=== PATIENT | male | born 1950 | race Two or more races ===

== ENCOUNTER 2016-07-08 12:04 | Inpatient (IN) | payer MEDICAID ==
[~2016-07-08] VITALS: Ht 165.1 cm; Wt 78.9 kg
[~2016-07-08 12:04] MED LIST: BACITRACIN15 GM TOPIC; BENADRYL A12.5 MG/5 ORAL; BISACODYL10 M1 RC; BISACODYL5 MG ORAL; DOCUSATE SODIU100 MG ORAL; IBUPROFEN200 MG ORAL; KEFLEX500 MG ORAL; LIBRIUM10 MG ORAL; LIBRIUM25 MG ORAL; MORPHINE SULFAT30 M7 PO; NKM; NORCO 10/3251 EA ORAL; NORCO 5-325 TA1 EACH ORAL; ONDANSETRON ODT4 MG ORAL; PERCOCET 5-3251 EACH ORAL; POLYETHYLENE G255 GM PO; PRAVASTATIN SOD20 M1 ORAL; SENNA; TYLENOL325 MG ORAL; UNOBMED
[2016-07-08 12:05] VITALS: BP 141/88
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
[2016-07-08 12:35] LABS: RED BLOOD COUNT 4.32 M/UL (4.70-6.10); WHITE BLOOD COUNT 5.9 K/UL (4.8-10.8)
[2016-07-08 12:36] LABS: BASOPHILS % (AUTO) 0.8 % (0.0-2.0); EOSINOPHILS % (AUTO) 0.4 % (0.0-3.0); LYMPHOCYTES % (AUTO) 23.8 % (20.0-45.0); MEAN CORPUSCULAR HEMOGLOBIN 35.3 PG (27.0-31.0); MEAN CORPUSCULAR HGB CONC 33.1 G/DL (32.0-36.0); MEAN CORPUSCULAR VOLUME 107 FL (80-99); MEAN PLATELET VOLUME 6.3 FL (6.5-10.1); MONOCYTES % (AUTO) 6.4 % (1.0-10.0); NEUTROPHILS % (AUTO) 68.6 % (45.0-75.0); PLATELET COUNT 185 K/UL (150-450); RED CELL DISTRIBUTION WIDTH 13.9 % (11.6-14.8)
[2016-07-08 12:48] LABS: ALANINE AMINOTRANSFERASE 14 U/L (3-41); ALBUMIN/GLOBULIN RATIO 1.7 (1.0-2.7); ALCOHOL 305 mg/dL; ANION GAP 16 (5-15); ASPARTATE AMINO TRANSFERASE 29 U/L (5-40); CALCIUM 9.2 mg/dL (8.6-10.2); CARBON DIOXIDE 30 mEQ/L (20-30); CHLORIDE 102 mEQ/L (98-107); CREATININE 0.7 mg/dL (0.7-1.2); GLOMERULAR FILTRATION RATE > 60 mL/min (>60); HEMOLYSIS 8; LIPASE 48 U/L (< 60); POTASSIUM 3.4 mEQ/L (3.4-4.9); SODIUM 148 mEQ/L (135-145); TOTAL PROTEIN 7.2 g/dL (6.6-8.7); TROPONIN I < 0.30 ng/mL (<=0.30)
[2016-07-08 12:58] LABS: CKMB 6.4 ng/mL (< 6.7)
--- NOTE | 2016-07-08 13:04 | Diagnostic Imaging Report ---
Indication: Chest Pain Comparison: 04/30/16 A single view chest radiograph was obtained. Findings: No definite infiltrate or pulmonary vascular congestion identified. The heart is enlarged. The aorta is mildly enlarged consistent with atherosclerotic vascular disease. There is a left clavicle plate. Fracture deformity of the left proximal humerus again noted. The bones are osteopenic. Impression: No acute disease
[2016-07-08] MEDS ORDERED: Tubing IV Cassette IV ONE (13:47)
[2016-07-08 14:00] VITALS: BP 132/74
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
[2016-07-08] MEDS ORDERED: Mylanta II UD 30ml ORAL PRN (17:30)
[2016-07-08] MEDS ORDERED: Zolpidem 5mg tab ORAL PRN (17:30)
[2016-07-08] MEDS ORDERED: Morphine Sulfate 2mg/ml Inj IVP PRN (17:30)
[2016-07-08] MEDS ORDERED: Miralax 17gm pkt ORAL PRN (17:30)
[2016-07-08] MEDS ORDERED: chlordiazePOXIDE 25mg Cap ORAL PRN (17:30)
[2016-07-08] MEDS ORDERED: LORazepam Inj 2mg/ml 1ml IV PRN (17:30)
[2016-07-08] MEDS: Heparin 5000 units/ml inj SUBQ SCH (20:56)
[2016-07-08] MEDS ORDERED: Thiamine HCl 100 MG in NS 50 ML IVPB SCH (21:00)
[2016-07-08] MEDS ORDERED: KCL IV SCH ×4 (21:00)
[2016-07-08] MEDS ORDERED: NS IV SCH ×4 (21:00)
[2016-07-08] MEDS ORDERED: [UNRECOGNIZED DRUG - OTHER] IV SCH ×4 (21:00)
[2016-07-08] MEDS ORDERED: FOLIC ACID IV SCH ×4 (21:00)
[2016-07-08] MEDS ORDERED: MVI IV SCH ×4 (21:00)
[2016-07-09] VITALS: BP 160/86
[2016-07-09 04:00] VITALS: BP 168/90
[2016-07-09 06:02] LABS: BASOPHILS % (AUTO) 0.9 % (0.0-2.0); EOSINOPHILS % (AUTO) 0.6 % (0.0-3.0); LYMPHOCYTES % (AUTO) 34.2 % (20.0-45.0); MEAN CORPUSCULAR HEMOGLOBIN 34.5 PG (27.0-31.0); MEAN CORPUSCULAR HGB CONC 32.1 G/DL (32.0-36.0); MEAN CORPUSCULAR VOLUME 108 FL (80-99); MEAN PLATELET VOLUME 6.9 FL (6.5-10.1); MONOCYTES % (AUTO) 10.9 % (1.0-10.0); NEUTROPHILS % (AUTO) 53.5 % (45.0-75.0); PLATELET COUNT 155 K/UL (150-450); RED BLOOD COUNT 3.42 M/UL (4.70-6.10); RED CELL DISTRIBUTION WIDTH 13.7 % (11.6-14.8)
[2016-07-09 06:42] LABS: ALANINE AMINOTRANSFERASE 11 U/L (3-41); ALBUMIN/GLOBULIN RATIO 1.5 (1.0-2.7); ANION GAP 11 (5-15); ASPARTATE AMINO TRANSFERASE 23 U/L (5-40); CALCIUM 8.4 mg/dL (8.6-10.2); CARBON DIOXIDE 24 mEQ/L (20-30); CHLORIDE 109 mEQ/L (98-107); CREATININE 0.7 mg/dL (0.7-1.2); GLOMERULAR FILTRATION RATE > 60 mL/min (>60); HEMOLYSIS 3; POTASSIUM 4.4 mEQ/L (3.4-4.9); SODIUM 144 mEQ/L (135-145); TOTAL PROTEIN 5.5 g/dL (6.6-8.7)
[2016-07-09 08:00] VITALS: BP 164/81
[2016-07-09] MEDS: Heparin 5000 units/ml inj SUBQ SCH ×2 (08:11→20:37)
--- NOTE | 2016-07-09 09:32 | Pulmonology Progress Note ---
Assessment/Plan Problems: (1) Acute alcoholic intoxication (2) Episode of generalized weakness (3) Rhabdomyolysis Assessment/Plan improving Iv fluid symptomatic treatment Banana bag ativan check electrolytes social service consult' dc home or to a residential today. pt needs a wheelchair Subjective ROS Limited/Unobtainable: No Interval Events: awake, doing bettter, no new complains, asking for a wheelchair Allergies: Coded Allergies: NO KNOWN DRUG ALLERGIES (Unverified Allergy, Unknown, 08/04/14) Objective Last 24 Hour Vital Signs Date Time Temp Pulse Resp B/P Pulse Ox O2 Delivery O2 Flow Rate FiO2 07/09/16 04:00 66 07/09/16 04:00 97.7 62 20 168/90 97 Room Air 07/09/16 00:00 97.4 102 20 160/86 95 Room Air 07/09/16 00:00 79 07/08/16 20:00 87 07/08/16 18:10 83 07/08/16 17:06 71 17 130/62 96 Room Air 07/08/16 14:00 78 16 132/74 94 Room Air 07/08/16 12:05 73 14 141/88 95 Room Air 07/08/16 12:00 97.2 82 16 147/84 97 Room Air Intake and Output 07/08/16 07/09/16 19:00 07:00 Intake Total 1000 ml 1176 ml Output Total 800 ml Balance 1000 ml 376 ml Intake Oral 0 ml IV Total 1000 ml 1176 ml Output Urine Total 800 ml # Voids 3 # Bowel Movements 1 General Appearance: WD/WN HEENT: normocephalic, anicteric Respiratory/Chest: chest wall non-tender, lungs clear Cardiovascular: normal peripheral pulses, normal rate Abdomen: normal bowel sounds, soft, non tender Genitourinary: normal external genitalia Extremities: no cyanosis 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 Lymphatic: no neck adenopathy Laboratory Tests 07/08/16 12:10: White Blood Count 5.9, Red Blood Count 4.32L, Hemoglobin 15.2, Hematocrit 46.0, Mean Corpuscular Volume 107H, Mean Corpuscular Hemoglobin 35.3H, Mean Corpuscular Hemoglobin Concent 33.1, Red Cell Distribution Width 13.9, Platelet Count 185, Mean Platelet Volume 6.3L, Neutrophils (%) (Auto) 68.6, Lymphocytes ( %) (Auto) 23.8, Monocytes (%) (Auto) 6.4, Eosinophils (%) (Auto) 0.4, Basophils (%) (Auto) 0.8, Sodium Level 148H, Potassium Level 3.4, Chloride Level 102, Carbon Dioxide Level 30, Anion Gap 16H, Blood Urea Nitrogen 14, Creatinine 0.7, Estimat Glomerular Filtration Rate > 60, Glucose Level 113H, Calcium Level 9.2, Total Bilirubin 0.2, Aspartate Amino Transf (AST/SGOT) 29, Alanine Aminotransferase (ALT/SGPT) 14, Alkaline Phosphatase 157H, Total Creatine Kinase 574H, Creatine Kinase MB 6.4, Creatine Kinase MB Relative Index 1.1, Troponin I < 0.30, Total Protein 7.2, Albumin 4.6, Globulin 2.6, Albumin/ Globulin Ratio 1.7, Lipase 48, Serum Alcohol 305 07/09/16 04:30: White Blood Count 5.0, Red Blood Count 3.42L, Hemoglobin 11.8L, Hematocrit 36.9L , Mean Corpuscular Volume 108H, Mean Corpuscular Hemoglobin 34.5H, Mean Corpuscular Hemoglobin Concent 32.1, Red Cell Distribution Width 13.7, Platelet Count 155, Mean Platelet Volume 6.9, Neutrophils (%) (Auto) 53.5, Lymphocytes (% ) (Auto) 34.2, Monocytes (%) (Auto) 10.9H, Eosinophils (%) (Auto) 0.6, Basophils (%) (Auto) 0.9, Sodium Level 144, Potassium Level 4.4, Chloride Level 109H, Carbon Dioxide Level 24, Anion Gap 11, Blood Urea Nitrogen 13, Creatinine 0.7, Estimat Glomerular Filtration Rate > 60, Glucose Level 94, Calcium Level 8.4L, Total Bilirubin 0.5, Aspartate Amino Transf (AST/SGOT) 23, Alanine Aminotransferase (ALT/SGPT) 11, Alkaline Phosphatase 124, Total Protein 5.5L, Albumin 3.3L, Globulin 2.2, Albumin/Globulin Ratio 1.5 Current Medications Medications (Trade) Dose Ordered Sig/Payton Route PRN Reason Start Time Stop Time Status Last Admin Dose Admin Acetaminophen (Tylenol) 650 mg Q4H PRN ORAL fever 07/08/16 17:30 08/07/16 17:29 Al Hydroxide/Mg Hydroxide (Mylanta II) 30 ml Q6H PRN ORAL dyspepsia 07/08/16 17:30 08/07/16 17:29 Chlordiazepoxide 25 mg 25 mg Q6H PRN ORAL Agitation 07/08/16 17:30 07/15/16 17:29 Dextrose STAT PRN IV Hypoglycemia 07/08/16 17:30 08/07/16 17:29 Folic Acid/ Magnesium Sulfate/ Multivitamins/ Sodium Chloride (Folvite/ Magnesium Sulfate/ M.v.i.-12/NS w/ KCl 20mEq) 1,014.2 ml @ 125 mls/ hr Q24H IV 07/08/16 21:00 08/07/16 20:59 07/08/16 20:09 Heparin Sodium (Porcine) (Heparin 5000 units/ml) 5,000 units EVERY 12 HOURS SUBQ 07/08/16 21:00 08/07/16 20:59 07/09/16 08:11 Lorazepam (Ativan 2mg/ml 1ml) 2 mg EVERY HOUR PRN IV seizures 07/08/16 17:30 07/15/16 17:29 Morphine Sulfate (Morphine Sulfate) 1 mg EVERY 4 HOURS PRN IVP For Pain 07/08/16 17:30 07/15/16 17:29 Ondansetron HCl (Zofran) 4 mg Q6H PRN IVP Nausea & Vomiting 07/08/16 17:30 08/07/16 17:29 Polyethylene Glycol (Miralax) 17 gm HSPRN PRN ORAL Constipation 07/08/16 17:30 08/07/16 17:29 Thiamine HCl/ Sodium Chloride (Vitamin B1/ Sodium Chloride 50ml bag) 51 ml @ 25 mls/hr Q24H IVPB 07/08/16 21:00 08/07/16 20:59 07/08/16 20:21 Zolpidem Tartrate (Ambien) 5 mg HSPRN PRN ORAL Insomnia 07/08/16 17:30 08/07/16 17:29 FELICIA VALLECILLO Jul 09, 2016 09:32
[2016-07-09 12:00] VITALS: BP 169/94
[2016-07-09] MEDS ORDERED: Thiamine HCl 100 MG in NS 50 ML IVPB SCH ×2 (12:00→22:00)
[2016-07-09] MEDS ORDERED: Folic Acid 1 MG, Magnesium Sulfate 2,000 MG, Multivitamin - 12 Injection 10 ML in NS w/... IV SCH ×2 (12:00→22:00)
[2016-07-09 16:11] VITALS: BP 186/85
[2016-07-09] MEDS ORDERED: Miralax 17gm pkt ORAL PRN (17:30)
[2016-07-09] MEDS ORDERED: chlordiazePOXIDE 25mg Cap ORAL PRN (17:30)
[2016-07-09] MEDS ORDERED: Zolpidem 5mg tab ORAL PRN (17:30)
[2016-07-09] MEDS ORDERED: Mylanta II UD 30ml ORAL PRN (17:30)
--- NOTE | 2016-07-09 17:44 | Cardiology Report ---
APPROVED REPORT EKG Measurement Heart [id number] Sinus rhythm with premature atrial complexes Otherwise normal ECG
[2016-07-09] MEDS ORDERED: LORazepam Inj 2mg/ml 1ml IV PRN (18:00)
[2016-07-09 20:00] VITALS: BP 183/88
[2016-07-09] MEDS ORDERED: Morphine Sulfate 2mg/ml Inj IVP PRN (21:00)
[2016-07-10] VITALS (7 sets, daily range): BP systolic 157–187; BP diastolic 82–99
[2016-07-10 06:54] LABS: PROTHROMBIN TIME 9.9 SEC (9.30-11.50)
[2016-07-10 07:00] LABS: BASOPHILS % (AUTO) 0.8 % (0.0-2.0); EOSINOPHILS % (AUTO) 1.2 % (0.0-3.0); LYMPHOCYTES % (AUTO) 37.9 % (20.0-45.0); MEAN CORPUSCULAR HEMOGLOBIN 33.9 PG (27.0-31.0); MEAN CORPUSCULAR HGB CONC 31.4 G/DL (32.0-36.0); MEAN CORPUSCULAR VOLUME 108 FL (80-99); MEAN PLATELET VOLUME 7.6 FL (6.5-10.1); MONOCYTES % (AUTO) 10.8 % (1.0-10.0); NEUTROPHILS % (AUTO) 49.2 % (45.0-75.0); PLATELET COUNT 137 K/UL (150-450); RED BLOOD COUNT 3.48 M/UL (4.70-6.10); RED CELL DISTRIBUTION WIDTH 13.3 % (11.6-14.8)
[2016-07-10] MEDS: Heparin 5000 units/ml inj SUBQ SCH (09:00)
[2016-07-10 09:08] LABS: ALANINE AMINOTRANSFERASE 13 U/L (3-41); ALBUMIN/GLOBULIN RATIO 1.8 (1.0-2.7); ANION GAP 12 (5-15); ASPARTATE AMINO TRANSFERASE 26 U/L (5-40); CARBON DIOXIDE 25 mEQ/L (20-30); CHLORIDE 102 mEQ/L (98-107); CREATININE 0.8 mg/dL (0.7-1.2); GLOMERULAR FILTRATION RATE > 60 mL/min (>60); HEMOLYSIS 8; MAGNESIUM 2.6 mg/dL (1.7-2.5); PHOSPHORUS 3.6 mg/dL (2.5-4.8); POTASSIUM 4.6 mEQ/L (3.4-4.9); SODIUM 139 mEQ/L (135-145); TOTAL PROTEIN 5.9 g/dL (6.6-8.7)
--- NOTE | 2016-07-11 16:19 | Discharge Summary ---
Discharge Summary Hospital Course Date of Admission Jul 08, 2016 at 14:15 Date of Discharge Jul 10, 2016 at 16:00 Admitting Diagnosis weakness/rhabdomyolysis VARGAS Patel is a 65 year old male who was admitted on Jul 08, 2016 at 14:15 for Weakness/Rhabdomyolysis Hospital Course [id number] Discharge Discharge Disposition Patient was discharged home Discharge Diagnoses: Renetta Helton NP Jul 11, 2016 16:19
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
== END 2016-07-10 16:00 | disposition home or self-care (01) | DRG 775 ==
LOC: EDBD 12:04 → EMR 14:00 → 2W 14:15 → EDBEDREQ 16:19 → 4W 07-09 16:45
DX: F10.129 Alcohol abuse with intoxication, unspecified (principal); M62.82 Rhabdomyolysis; Y90.8 Blood alcohol level of 240 mg/100 ml or more; S51.811A Laceration without foreign body of right forearm, initial encounter; X58.XXXA Exposure to other specified factors, initial encounter; Y92.89 Other specified places as the place of occurrence of the external cause
CPT/HCPCS: 36415; 71010; 80053; 80329; 82550; 82553; 83690; 83735; 84100; 84484; 85025; 85610; 85730; 93005

== ENCOUNTER 2016-07-30 02:15 | Emergency (ER) | payer MEDICAID ==
[~2016-07-30] VITALS: Ht 170.2 cm; Wt 72.6 kg
[2016-07-30 02:15] VITALS: BP 114/88
[2016-07-30] MEDS ORDERED: Dicyclomine HCl 10mg/5ml oral soln ORAL ONE (04:45)
[2016-07-30] MEDS ORDERED: Lidocaine 2% Visc 15ml soln ORAL ONE (04:45)
[2016-07-30 05:00] VITALS: BP 114/88
--- NOTE | 2016-08-02 13:37 | Emergency Room Report ---
History of Present Illness General Chief Complaint: Alcohol Intoxication Source: Patient, EMS Present Illness HPI Patient is a 65-year-old male presented after increased altered mental status. Patient had been Drinking alcohol heavily. The patient gradual onset of symptoms. The patient had any vomiting or hematemesis. He reported having some back pain. He denies any fever. Patient markedly limited by patient's poor cooperation. Allergies: Coded Allergies: NO KNOWN DRUG ALLERGIES (Unverified Allergy, Unknown, 08/04/14) Patient History Past Medical History: see triage record Reviewed Nursing Documentation: PMH: Agreed, PSxH: Agreed Nursing Documentation-PMH Hx Cardiac Problems: No - etoh Hx Hypertension: No Hx Pacemaker: No Hx Asthma: No Hx COPD: No Hx Diabetes: No Hx Cancer: No Hx Gastrointestinal Problems: No Hx Dialysis: No Hx Neurological Problems: Yes - back problem, spinal cord problem Hx Cerebrovascular Accident: No Hx Seizures: No Review of Systems All Other Systems: negative except mentioned in HPI Physical Exam Vital Signs Date Time Temp Pulse Resp B/P Pulse Ox O2 Delivery O2 Flow Rate FiO2 07/30/16 02:14 97.0 94 16 114/88 99 Room Air General Appearance: well appearing, no apparent distress, alert, GCS 15 Head: normocephalic, atraumatic ENT: hearing grossly normal, normal voice Neck: full range of motion, supple Respiratory: no respiratory distress, speaking full sentences Musculoskeletal: no calf tenderness Neurologic: normal gait, other - slurred speech Psychiatric: mood/affect normal Skin: normal inspection, normal color, no rash Medical Decision Making Diagnostic Impression: Primary Impression: Acute alcoholic intoxication Additional Impression: ETOH abuse ER Course Patient presented for altered level consciousness. Differential diagnosis included but was not limited to ischemic stroke, subarachnoid hemorrhage, hypoglycemia, spinal cord injury, neurodegenerative disorder, urinary tract infection, hypoxemia.Patient's benign exam and does not appear to require any further imaging or laboratory testing at this time. The patient presented intoxicated with alcohol. The patient gradual improvement in his mental status throughout ER course. The patient was given a GI cocktail for mild stomach upset. At the time of discharge patient ambulatory without assistance and had the capacity for self care . The patient is advised to follow up with primary care doctor in 1-2 days. Patient is advised to return if any worsening condition or if any changes in status that are concerning. Last Vital Signs Date Time Temp Pulse Resp B/P Pulse Ox O2 Delivery O2 Flow Rate FiO2 07/30/16 05:00 97.0 16 114/88 99 Room Air 07/30/16 02:14 94 Status: improved Disposition: HOME, SELF-CARE Condition: Stable Referrals: [facility],REFERRING (PCP) Patient Instructions: Alcohol Intoxication, Back Pain, Adult Aneesh Johns Aug 02, 2016 13:37
== END 2016-07-30 05:30 | disposition home or self-care (01) ==
LOC: EDBD 02:15 → EMR 02:29
DX: F10.129 Alcohol abuse with intoxication, unspecified (principal); R41.82 Altered mental status, unspecified
CPT/HCPCS: 99283

== ENCOUNTER 2016-11-11 23:25 | Emergency (ER) | payer MEDICAID ==
[~2016-11-11] VITALS: Ht 165.1 cm; Wt 63.5 kg
[2016-11-12] VITALS (7 sets, daily range): BP systolic 103–176; BP diastolic 74–97
[2016-11-12] MEDS ORDERED: LORazepam Inj 2mg/ml 1ml IM ONE (01:15)
[2016-11-12] MEDS ORDERED: Haloperidol 5mg/ml Inj IM ONE (01:15)
[2016-11-12 01:50] LABS: BASOPHILS % (AUTO) 0.7 % (0.0-2.0); EOSINOPHILS % (AUTO) 0.9 % (0.0-3.0); LYMPHOCYTES % (AUTO) 35.5 % (20.0-45.0); MEAN CORPUSCULAR HEMOGLOBIN 32.7 PG (27.0-31.0); MEAN CORPUSCULAR HGB CONC 33.4 G/DL (32.0-36.0); MEAN CORPUSCULAR VOLUME 98 FL (80-99); MEAN PLATELET VOLUME 8.4 FL (6.5-10.1); MONOCYTES % (AUTO) 5.5 % (1.0-10.0); NEUTROPHILS % (AUTO) 57.4 % (45.0-75.0); PLATELET COUNT 212 K/UL (150-450); RED CELL DISTRIBUTION WIDTH 12.6 % (11.6-14.8); WHITE BLOOD COUNT 5.3 K/UL (4.8-10.8)
[2016-11-12 02:07] LABS: ACETAMINOPHEN < 10 ug/mL (10-30); ALANINE AMINOTRANSFERASE 11 U/L (3-41); ALBUMIN/GLOBULIN RATIO 1.4 (1.0-2.7); ALCOHOL 314 mg/dL; ANION GAP 16 (5-15); ASPARTATE AMINO TRANSFERASE 15 U/L (5-40); CALCIUM 9.3 mg/dL (8.6-10.2); CARBON DIOXIDE 26 mEQ/L (20-30); CHLORIDE 107 mEQ/L (98-107); CREATININE 0.6 mg/dL (0.7-1.2); GLOMERULAR FILTRATION RATE > 60 mL/min (>60); HEMOLYSIS 6; POTASSIUM 3.8 mEQ/L (3.4-4.9); SODIUM 149 mEQ/L (135-145); TOTAL PROTEIN 7.2 g/dL (6.6-8.7)
--- NOTE | 2016-11-12 08:50 | Diagnostic Imaging Report ---
Indications: Altered mental status Technique: Continuous helical CT imaging of the brain was performed with automatic exposure control on a Siemens sensation [address] scanner. Axial and coronal images were reconstructed at 5 mm slice thickness and interval. 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 No evidence of mass or hemorrhage, other attenuation abnormality, mass effect, midline shift, hydrocephalus or increased intracranial pressure. Bone window images are unremarkable. Visualized paranasal sinuses and mastoid air cells are clear. Right frontal supraorbital scalp again focally swollen and increased attenuation. No associated gas or foreign body identified. IMPRESSION: Right frontal supraorbital scalp hematoma No other evidence of acute injury or other acute intracranial pathology. Stable chronic changes as described This correlates with [facility] preliminary report. The CT scanner at [facility] is accredited by the [employer] and the scans are performed using protocols designed to limit radiation exposure to as low as reasonably achievable to attain images of sufficient resolution adequate for diagnostic evaluation.
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
--- NOTE | 2016-11-13 17:38 | Emergency Room Report ---
History of Present Illness General Chief Complaint: Alcohol Intoxication Source: EMS Present Illness HPI 65-year-old male presents ED for evaluation. Per EMS patient found sleeping on the floor next to neighbor door. [place] [facility] [place] been here multiple times for alcohol intoxication. Upon arrival patient has slurred speech. Lethargic. Unable to answer any additional questions at this time. Unclear whether patient sustained trauma. No other aggravating reading factors. No other associated symptom Allergies: Coded Allergies: NO KNOWN DRUG ALLERGIES (Unverified Allergy, Unknown, 08/04/14) Patient History Past Medical History: none Past Surgical History: none Pertinent Family History: none Social History: Reports: alcohol use Immunizations: UTD Reviewed Nursing Documentation: PMH: Agreed, PSxH: Agreed Nursing Documentation-PMH Past Medical History: No History, Except For Hx Cardiac Problems: No - etoh Hx Hypertension: No Hx Pacemaker: No Hx Asthma: No Hx COPD: No Hx Diabetes: No Hx Cancer: No Hx Gastrointestinal Problems: No Hx Dialysis: No Hx Neurological Problems: Yes - back problem, spinal cord problem Hx Seizures: No Review of Systems All Other Systems: negative except mentioned in HPI Physical Exam Vital Signs Date Time Temp Pulse Resp B/P Pulse Ox O2 Delivery O2 Flow Rate FiO2 11/11/16 23:25 97.0 64 20 176/97 98 Room Air Sp02 EP Interpretation: reviewed, normal General Appearance: lethargic Head: normocephalic Eyes: bilateral eye PERRL, bilateral eye normal inspection ENT: normal ENT inspection Neck: normal inspection Respiratory: chest non-tender, lungs clear, normal breath sounds, speaking full sentences Cardiovascular #1: regular rate, rhythm, no edema Gastrointestinal: normal bowel sounds, non tender, soft, non-distended, no guarding, no rebound Rectal: deferred Genitourinary: no CVA tenderness Musculoskeletal: non-tender Neurologic: other - intoxicated Psychiatric: other - intoxicated Skin: normal inspection Lymphatic: normal inspection Medical Decision Making Diagnostic Impression: Primary Impression: Acute alcoholic intoxication Qualified Codes: F10.129 - Alcohol abuse with intoxication, unspecified Additional Impression: Unsteady gait ER Course Hospital Course 65-year-old M presents to ED with altered mental status. found sleeping on floor Differential diagnoses include: Psychosis, EtOH, drug abuse Clinical course patient placed on stretcher. On laboratory monitor. After initial history and physical ordered labs, IV fluids, CT brain. Patient fell out of his bed. Patient was placed back in his bed. patient appeared agitated. Patient was given health on Ativan for sedation Labs reviewed-electrolytes okay, no leukocytosis, hemoglobin/hematocrit stable, ETOH elevated CT brain shows no acute pathology Patient is still sleeping. i. I feel this is a highly complex case requiring extensive working including EKG/Rhythm strip, Xray/CT/US, Blood/urine lab work, repeat exams while in ED, and administration of strong opiates/narcotics for pain control, admission to hospital or close patient follow up. Diagnosis -alcohol intoxication Patient is medically cleared and likely can be discharged. Will be signed out to Dr. Zimmer pending reassessment upon sobriety Labs Test 11/12/16 01:32 White Blood Count 5.3 K/UL (4.8-10.8) Red Blood Count 4.60 M/UL (4.70-6.10) Hemoglobin 15.0 G/DL (14.2-18.0) Hematocrit 45.0 % (42.0-52.0) Mean Corpuscular Volume 98 FL (80-99) Mean Corpuscular Hemoglobin 32.7 PG (27.0-31.0) Mean Corpuscular Hemoglobin Concent 33.4 G/DL (32.0-36.0) Red Cell Distribution Width 12.6 % (11.6-14.8) Platelet Count 212 K/UL (150-450) Mean Platelet Volume 8.4 FL (6.5-10.1) Neutrophils (%) (Auto) 57.4 % (45.0-75.0) Lymphocytes (%) (Auto) 35.5 % (20.0-45.0) Monocytes (%) (Auto) 5.5 % (1.0-10.0) Eosinophils (%) (Auto) 0.9 % (0.0-3.0) Basophils (%) (Auto) 0.7 % (0.0-2.0) Sodium Level 149 mEQ/L (135-145) Potassium Level 3.8 mEQ/L (3.4-4.9) Chloride Level 107 mEQ/L (98-107) Carbon Dioxide Level 26 mEQ/L (20-30) Anion Gap 16 (5-15) Blood Urea Nitrogen 8 mg/dL (7-23) Creatinine 0.6 mg/dL (0.7-1.2) Estimat Glomerular Filtration Rate > 60 mL/min (>60) Glucose Level 103 mg/dL (74-106) Calcium Level 9.3 mg/dL (8.6-10.2) Total Bilirubin 0.2 mg/dL (0.0-1.2) Aspartate Amino Transf (AST/SGOT) 15 U/L (5-40) Alanine Aminotransferase (ALT/SGPT) 11 U/L (3-41) Alkaline Phosphatase 92 U/L (40-129) Total Protein 7.2 g/dL (6.6-8.7) Albumin 4.3 g/dL (3.5-5.2) Globulin 2.9 g/dL Albumin/Globulin Ratio 1.4 (1.0-2.7) Salicylates Level < 1 mg/dL (10-30) Acetaminophen Level < 10 ug/mL (10-30) Serum Alcohol 314 mg/dL CT/MRI/US Diagnostic Results CT/MRI/US Diagnostic Results : Imaging Test Ordered: CT head Impression no acute process Last Vital Signs Date Time Temp Pulse Resp B/P Pulse Ox O2 Delivery O2 Flow Rate FiO2 11/12/16 16:52 98.4 87 20 176/97 96 Room Air Status: improved Disposition: HOME, SELF-CARE Condition: Stable Referrals: [facility],REFERRING (PCP) Patient Instructions: Alcohol Intoxication RAVI BERNARD M.D. November 13, 2016 17:38
== END 2016-11-12 16:52 | disposition home or self-care (01) ==
LOC: EDBD 23:25 → EDUNIT# 23:25 → EMR 23:45
DX: F10.129 Alcohol abuse with intoxication, unspecified (principal); Y90.8 Blood alcohol level of 240 mg/100 ml or more; R26.81 Unsteadiness on feet
CPT/HCPCS: 36415; 70450; 80053; 80329; 82962; 85025; 96372; 96374; 99284; J1630

== ENCOUNTER 2017-01-08 02:39 | Emergency (ER) | payer MEDICAID ==
[~2017-01-08] VITALS: Ht 165.1 cm; Wt 59.0 kg
[2017-01-08 02:40] VITALS: BP 147/80
--- NOTE | 2017-01-08 02:54 | Emergency Room Report ---
History of Present Illness General Chief Complaint: Alcohol Intoxication Source: Patient Present Illness HPI 65YOM BIBEMS after bystanders called EMS, patient sleeping on ground. Had wheelchair with him. For some reason, human resources training manager did not bring with them. Empty bottle of alcohol with patient. Multiple visits to [facility] [place] for same. Per EMR, difficult to disposition patient after last visit to ED for ETOH intoxication with SW involved and attempts to get wheelchair for patient. EMS denies any signs of trauma Patient repeatedly giving "thumbs up sign" in ED but not providing additional HPI at this time. Allergies: Coded Allergies: NO KNOWN DRUG ALLERGIES (Unverified Allergy, Unknown, 08/04/14) Patient History Limited by: medical condition Past Medical History: old chart reviewed Past Surgical History: unable to obtain Pertinent Family History: unable to obtain Social History: Reports: alcohol use Immunizations: UTD Reviewed Nursing Documentation: PMH: Agreed, PSxH: Agreed Nursing Documentation-PMH Hx Cardiac Problems: No - etoh Hx Hypertension: No Hx Pacemaker: No Hx Asthma: No Hx COPD: No Hx Diabetes: No Hx Cancer: No Hx Gastrointestinal Problems: No Hx Dialysis: No Hx Neurological Problems: Yes - paraplegic Hx Cerebrovascular Accident: No Hx Seizures: No Review of Systems All Other Systems: limited - ETOH intoxication Physical Exam Vital Signs Date Time Temp Pulse Resp B/P Pulse Ox O2 Delivery O2 Flow Rate FiO2 01/08/17 02:33 98.1 78 16 147/80 98 Room Air Sp02 EP Interpretation: reviewed, normal General Appearance: normal inspection, well appearing, no apparent distress, alert, non-toxic, other - Disheveled, unkempt, +AOB Head: normocephalic, atraumatic Eyes: bilateral eye EOMI, bilateral eye PERRL ENT: normal ENT inspection, normal pharynx, no angioedema, normal voice Neck: normal inspection, full range of motion, supple, no bony tend Respiratory: normal inspection, lungs clear, normal breath sounds, no respiratory distress, no retraction, no wheezing Cardiovascular #1: regular rate, rhythm, no edema Gastrointestinal: normal inspection, normal bowel sounds, non tender, soft, no guarding, no hernia Genitourinary: no CVA tenderness Musculoskeletal: normal inspection, back normal, normal range of motion, Kane' s Sign negative Neurologic: normal inspection, alert, responsive, instructional design manager III-XII nml as tested, motor strength/tone normal, speech normal Psychiatric: normal inspection, judgement/insight normal, mood/affect normal Skin: normal inspection, normal color, no rash Medical Decision Making Diagnostic Impression: Primary Impression: Acute alcoholic intoxication Qualified Codes: F10.920 - Alcohol use, unspecified with intoxication, uncomplicated Additional Impression: Alcohol abuse ER Course - VSS. Afebrile. - No signs of trauma on head-to-toe exam bedside - ETOH bottle on scene, +AOB, history of same - Previous October 2016 visit review of labs: No anemia. No leuks. No significant metabolic disorder noted. +elevated ETOH level SW consult placed for wheelchair Endorsed to Dr Zimmer for disposition Last Vital Signs Date Time Temp Pulse Resp B/P Pulse Ox O2 Delivery O2 Flow Rate FiO2 01/08/17 02:33 98.1 78 16 147/80 98 Room Air Status: improved Disposition: HOME, SELF-CARE DAVE TALBOT M.D. Jan 08, 2017 02:54
[2017-01-08 04:40] VITALS: BP 149/71
[2017-01-08 06:40] VITALS: BP 155/86
[2017-01-08 10:14] LABS: APPEARANCE,URINE CLEAR; KETONES,URINE NEGATIVE (NEGATIVE); LEUKOCYTE ESTERASE ,URINE NEGATIVE (NEGATIVE); NITRITE,URINE NEGATIVE (NEGATIVE); PH,URINE 5 (4.5-8.0); PROTEIN,URINE NEGATIVE (NEGATIVE); UROBILINOGEN,URINE NORMAL MG/DL (0.0-1.0)
[2017-01-08 10:18] LABS: MEAN CORPUSCULAR HEMOGLOBIN 34.1 PG (27.0-31.0); MEAN CORPUSCULAR HGB CONC 32.7 G/DL (32.0-36.0); MEAN CORPUSCULAR VOLUME 104 FL (80-99); MEAN PLATELET VOLUME 6.5 FL (6.5-10.1); PLATELET COUNT 234 K/UL (150-450); RED BLOOD COUNT 4.38 M/UL (4.70-6.10); RED CELL DISTRIBUTION WIDTH 15.9 % (11.6-14.8); WHITE BLOOD COUNT 3.1 K/UL (4.8-10.8)
[2017-01-08 10:27] LABS: INR 0.9 (0.9-1.1); PROTHROMBIN TIME 9.8 SEC (9.30-11.50)
[2017-01-08 10:31] LABS: TROPONIN I < 0.30 ng/mL (<=0.30)
[2017-01-08 10:35] LABS: ALANINE AMINOTRANSFERASE 50 U/L (3-41); ALBUMIN/GLOBULIN RATIO 1.5 (1.0-2.7); ALCOHOL 267 mg/dL; ANION GAP 14 (5-15); ASPARTATE AMINO TRANSFERASE 66 U/L (5-40); CALCIUM 9.2 mg/dL (8.6-10.2); CARBON DIOXIDE 28 mEQ/L (20-30); CHLORIDE 106 mEQ/L (98-107); CREATININE 0.7 mg/dL (0.7-1.2); GLOMERULAR FILTRATION RATE > 60 mL/min (>60); HEMOLYSIS 6; POTASSIUM 3.3 mEQ/L (3.4-4.9); SODIUM 148 mEQ/L (135-145); TOTAL PROTEIN 7.1 g/dL (6.6-8.7)
[2017-01-08 10:37] LABS: BASOPHILS % (MANUAL) 1 % (0-2); EOSINOPHILS % (MANUAL) 2 % (0-3); LYMPHOCYTES % (MANUAL) 52 % (20-45); NEUTROPHILS % (MANUAL) 34 % (45-75); TOTAL CELLS COUNTED 100
[2017-01-08 10:38] LABS: ANISOCYTOSIS 1+; BAND NEUTROPHILS % (MANUAL) 0 % (0-8); MACROCYTES 1+; PLATELET ESTIMATE ADEQUATE; PLATELET MORPHOLOGY NORMAL
[2017-01-08 11:59] VITALS: BP 148/79
[2017-01-08 12:00] VITALS: BP 148/79
== END 2017-01-08 11:56 | disposition home or self-care (01) ==
LOC: EDBD 02:39 → EMR 02:40 → EDBEDREQTM 09:28 → EDBEDREQSVC 09:28 → EDBEDREQ 09:28 → EMR 11:56
DX: F10.129 Alcohol abuse with intoxication, unspecified (principal); G82.20 Paraplegia, unspecified
CPT/HCPCS: 36415; 80053; 80300; 80329; 81003; 82550; 84484; 85007; 85025; 85610; 85730; 99284

== ENCOUNTER 2017-02-01 00:47 | Emergency (ER) | payer MEDICAID ==
[~2017-02-01] VITALS: Ht 167.6 cm; Wt 68.0 kg
[2017-02-01 01:00] VITALS: BP 160/81
--- NOTE | 2017-02-01 01:01 | Emergency Room Report ---
History of Present Illness General Chief Complaint: Alcohol Intoxication Source: Patient, EMS Present Illness HPI Is a 66-year-old male is an alcoholic. He is not homeless but is binge drinking. He's been drinking tonight. He presents with chief complaint of feeling hungry. Denies any fever chills denies any nausea vomiting. He does want a place to sleep and something to eat. Denies any other complaint. No pain. No trauma. Allergies: Coded Allergies: NO KNOWN DRUG ALLERGIES (Unverified Allergy, Unknown, 08/04/14) Patient History Past Medical History: see triage record, old chart reviewed Past Surgical History: other Pertinent Family History: none Social History: Reports: alcohol use Immunizations: other Reviewed Nursing Documentation: PMH: Agreed, PSxH: Agreed Nursing Documentation-PMH Past Medical History: No History, Except For Hx Cardiac Problems: No - ETOH Hx Hypertension: No Hx Pacemaker: No Hx Asthma: No Hx COPD: No Hx Diabetes: No Hx Cancer: No Hx Gastrointestinal Problems: No Hx Dialysis: No Hx Neurological Problems: Yes - Paraplegic Hx Seizures: No Review of Systems Eye: Denies: blurred vision, eye pain ENT: Denies: ear pain, nose congestion, throat swelling Respiratory: Denies: cough, shortness of breath Cardiovascular: Denies: chest pain, palpitations Gastrointestinal: Denies: abdominal pain, diarrhea, nausea, vomiting Musculoskeletal: Denies: back pain, joint pain Skin: Denies: rash Neurological: Denies: headache, numbness Endocrine: Denies: increased thirst, increased urine Hematologic/Lymphatic: Denies: easy bruising All Other Systems: negative except mentioned in HPI Physical Exam Vital Signs Date Time Temp Pulse Resp B/P Pulse Ox O2 Delivery O2 Flow Rate FiO2 02/01/17 00:48 98.4 70 16 160/81 98 Room Air vitals showed high blood pressure Sp02 EP Interpretation: reviewed, normal General Appearance: well appearing, no apparent distress, alert, other - disselved Head: normocephalic, atraumatic Eyes: bilateral eye EOMI, bilateral eye PERRL ENT: hearing grossly normal, normal pharynx Neck: full range of motion, supple, no meningismus Respiratory: chest non-tender, lungs clear, normal breath sounds Cardiovascular #1: regular rate, rhythm, no murmur Gastrointestinal: normal bowel sounds, non tender, no mass, no organomegaly, no bruit, non-distended Musculoskeletal: back normal, normal range of motion Psychiatric: mood/affect normal Skin: warm/dry Medical Decision Making Diagnostic Impression: Primary Impression: Acute alcoholic intoxication Qualified Codes: F10.929 - Alcohol use, unspecified with intoxication, unspecified ER Course Patient with alcohol intoxication. He's been here multiple time for the same thing. No trauma. Last Vital Signs Date Time Temp Pulse Resp B/P Pulse Ox O2 Delivery O2 Flow Rate FiO2 02/01/17 00:48 98.4 70 16 160/81 98 Room Air Status: improved Disposition: HOME, SELF-CARE Condition: Stable Patient Instructions: Alcohol Intoxication, [id number] Additional Instructions: followup with your Dr. in 7 days. Return if worse. GRICELDA WELLINGTON M.D. Feb 01, 2017 01:01
[2017-02-01 03:05] VITALS: BP 138/78
[2017-02-01 04:50] VITALS: BP 140/81
[2017-02-01 06:00] VITALS: BP 125/79
[2017-02-01 06:10] VITALS: BP 125/79
== END 2017-02-01 06:10 | disposition home or self-care (01) ==
LOC: EDBD 00:47 → EMR 01:01
DX: F10.929 Alcohol use, unspecified with intoxication, unspecified (principal); G82.20 Paraplegia, unspecified
CPT/HCPCS: 99284

== ENCOUNTER 2017-02-16 15:12 | Emergency (ER) | payer MEDICAID ==
[~2017-02-16] VITALS: Ht 167.6 cm; Wt 68.0 kg
[2017-02-16] MEDS ORDERED: Thiamine HCl 100 MG in D5W 55 ML IVPB SCH (15:15)
--- NOTE | 2017-02-16 15:17 | Emergency Room Report ---
History of Present Illness General Chief Complaint: Alcohol Intoxication Source: Patient Present Illness HPI The patient was brought in by EMS from an intersection. He had a fifth of vodka with him. He was altered. He has a history of alcohol abuse in the past. He denies any pain. Denies any trauma. He does use a wheelchair because of a prior back fracture and leg weakness. He denies any increased pain in his lower back. He's not suicidal or homicidal. Denies seizures, UGI bleeding. No fevers, cough, URI, increased weakness, dysuria. In the past we've had difficulty discharging patient. We have had to contact his 's river tester to contact his to pick him up. Allergies: Coded Allergies: NO KNOWN DRUG ALLERGIES (Unverified Allergy, Unknown, 08/04/14) Patient History Past Medical History: see triage record Social History: Reports: alcohol use Social History Narrative but roves streets, uses wheelchair Reviewed Nursing Documentation: PMH: Agreed, PSxH: Agreed Nursing Documentation-PMH Past Medical History: No Stated History Hx Cardiac Problems: No - ETOH Hx Hypertension: No Hx Pacemaker: No Hx Asthma: No Hx COPD: No Hx Diabetes: No Hx Cancer: No Hx Gastrointestinal Problems: No Hx Dialysis: No Hx Neurological Problems: Yes - Paraplegic Hx Seizures: No Review of Systems All Other Systems: negative except mentioned in HPI Physical Exam Vital Signs Date Time Temp Pulse Resp B/P Pulse Ox O2 Delivery O2 Flow Rate FiO2 02/16/17 14:58 98.2 70 12 103/59 96 Room Air Sp02 EP Interpretation: reviewed, normal General Appearance: well appearing, no apparent distress, GCS 15 Head: normocephalic Eyes: bilateral eye PERRL, bilateral eye Scleral Injection ENT: moist mucus membranes Neck: supple Respiratory: lungs clear, normal breath sounds Cardiovascular #1: regular rate, rhythm Cardiovascular #2: 2+ radial (R) Gastrointestinal: normal inspection, normal bowel sounds, non tender, no mass, non-distended Musculoskeletal: back normal, normal range of motion Neurologic: alert, oriented x3, sensory intact, motor weakness - LE but does move Psychiatric: depressed affect Skin: normal inspection, warm/dry Medical Decision Making Diagnostic Impression: Primary Impression: Acute alcoholic intoxication Qualified Codes: F10.929 - Alcohol use, unspecified with intoxication, unspecified Additional Impression: Lower extremity weakness Qualified Codes: R29.898 - Other symptoms and signs involving the musculoskeletal system ER Course Patient presents with alcohol ingestion. Is somewhat slow to respond however he has a nonfocal neurologic exam (except for leg weakness) at the moment. He has chronic back pain uses a wheelchair. Evaluated with electrolytes and treated with IV hydration and thiamine. Labs with BA= 290. Patient rested in ED. Patient wants to go home. Denies SI or HI. Wheelchair present. Patient stable for outpatient observation and treatment. Labs Test 02/16/17 16:06 02/16/17 17:40 White Blood Count 5.3 K/UL (4.8-10.8) Red Blood Count 3.87 M/UL (4.70-6.10) Hemoglobin 14.1 G/DL (14.2-18.0) Hematocrit 39.6 % (42.0-52.0) Mean Corpuscular Volume 102 FL (80-99) Mean Corpuscular Hemoglobin 36.3 PG (27.0-31.0) Mean Corpuscular Hemoglobin Concent 35.5 G/DL (32.0-36.0) Red Cell Distribution Width 14.7 % (11.6-14.8) Platelet Count 181 K/UL (150-450) Mean Platelet Volume 7.3 FL (6.5-10.1) Neutrophils (%) (Auto) 58.1 % (45.0-75.0) Lymphocytes (%) (Auto) 33.6 % (20.0-45.0) Monocytes (%) (Auto) 6.9 % (1.0-10.0) Eosinophils (%) (Auto) 0.6 % (0.0-3.0) Basophils (%) (Auto) 0.7 % (0.0-2.0) Sodium Level 147 mEQ/L (135-145) Potassium Level 3.5 mEQ/L (3.4-4.9) Chloride Level 109 mEQ/L (98-107) Carbon Dioxide Level 23 mEQ/L (20-30) Anion Gap 15 (5-15) Blood Urea Nitrogen 10 mg/dL (7-23) Creatinine 0.8 mg/dL (0.7-1.2) Estimat Glomerular Filtration Rate > 60 mL/min (>60) Glucose Level 96 mg/dL (74-106) Calcium Level 8.7 mg/dL (8.6-10.2) Total Bilirubin < 0.2 mg/dL (0.0-1.2) Aspartate Amino Transf (AST/SGOT) 23 U/L (5-40) Alanine Aminotransferase (ALT/SGPT) 17 U/L (3-41) Alkaline Phosphatase 110 U/L (40-129) Total Protein 6.3 g/dL (6.6-8.7) Albumin 4.1 g/dL (3.5-5.2) Globulin 2.2 g/dL Albumin/Globulin Ratio 1.8 (1.0-2.7) Salicylates Level < 1 mg/dL (10-30) Acetaminophen Level < 10 ug/mL (10-30) Serum Alcohol 290 mg/dL Urine Opiates Screen Negative (NEGATIVE) Urine Barbiturates Screen Negative (NEGATIVE) Phencyclidine (PCP) Screen Negative (NEGATIVE) Urine Amphetamines Screen Negative (NEGATIVE) Urine Benzodiazepines Screen Negative (NEGATIVE) Urine Cocaine Screen Negative (NEGATIVE) Urine Marijuana (THC) Screen Negative (NEGATIVE) Last Vital Signs Date Time Temp Pulse Resp B/P Pulse Ox O2 Delivery O2 Flow Rate FiO2 02/16/17 19:27 98.2 73 15 141/94 98 Room Air Status: improved Disposition: HOME, SELF-CARE Condition: Improved Davis Zimmer M.D. Feb 16, 2017 15:17
[2017-02-16] MEDS ORDERED: Thiamine HCl 100mg/ml 2 ml Inj ONE (15:57)
[2017-02-16 16:36] LABS: BASOPHILS % (AUTO) 0.7 % (0.0-2.0); EOSINOPHILS % (AUTO) 0.6 % (0.0-3.0); LYMPHOCYTES % (AUTO) 33.6 % (20.0-45.0); MEAN CORPUSCULAR HEMOGLOBIN 36.3 PG (27.0-31.0); MEAN CORPUSCULAR HGB CONC 35.5 G/DL (32.0-36.0); MEAN CORPUSCULAR VOLUME 102 FL (80-99); MEAN PLATELET VOLUME 7.3 FL (6.5-10.1); MONOCYTES % (AUTO) 6.9 % (1.0-10.0); NEUTROPHILS % (AUTO) 58.1 % (45.0-75.0); PLATELET COUNT 181 K/UL (150-450); RED BLOOD COUNT 3.87 M/UL (4.70-6.10); RED CELL DISTRIBUTION WIDTH 14.7 % (11.6-14.8); WHITE BLOOD COUNT 5.3 K/UL (4.8-10.8)
[2017-02-16 16:59] LABS: ACETAMINOPHEN < 10 ug/mL (10-30); ALANINE AMINOTRANSFERASE 17 U/L (3-41); ALBUMIN/GLOBULIN RATIO 1.8 (1.0-2.7); ALCOHOL 290 mg/dL; ANION GAP 15 (5-15); ASPARTATE AMINO TRANSFERASE 23 U/L (5-40); CALCIUM 8.7 mg/dL (8.6-10.2); CARBON DIOXIDE 23 mEQ/L (20-30); CHLORIDE 109 mEQ/L (98-107); CREATININE 0.8 mg/dL (0.7-1.2); GLOMERULAR FILTRATION RATE > 60 mL/min (>60); HEMOLYSIS 5; POTASSIUM 3.5 mEQ/L (3.4-4.9); SODIUM 147 mEQ/L (135-145); TOTAL PROTEIN 6.3 g/dL (6.6-8.7)
[2017-02-16 17:04] VITALS: BP 103/59
[2017-02-16] MEDS ORDERED: Metoprolol 5mg/5ml Inj IVP SCH (17:30)
[2017-02-16 18:45] VITALS: BP 141/94
[2017-02-16 19:27] VITALS: BP 141/94
== END 2017-02-16 19:27 | disposition home or self-care (01) ==
LOC: EDBD 15:12 → EMR 16:22
DX: F10.929 Alcohol use, unspecified with intoxication, unspecified (principal); R29.898 Other symptoms and signs involving the musculoskeletal system; G82.20 Paraplegia, unspecified
CPT/HCPCS: 36415; 80053; 80300; 80329; 85025; 96360; 96361

== ENCOUNTER 2017-07-25 22:29 | Emergency (ER) | payer MEDICAID ==
[~2017-07-25] VITALS: Ht 167.6 cm; Wt 68.0 kg
[2017-07-25 22:45] VITALS: BP 135/90
--- NOTE | 2017-07-26 00:11 | Emergency Room Report ---
History of Present Illness General Chief Complaint: Back Pain-No Injury Source: Patient, Medical Record, EMS Present Illness HPI This is a 66-year-old male who is well-known to us. Is an alcoholic who presents with multiple episode of alcohol intoxication. Was found near a liquor store complaining of back pain. Drinking heavily tonight. No other injury. When he got here he wanted to go to sleep. History limited because of his intoxication. Allergies: Coded Allergies: NO KNOWN DRUG ALLERGIES (Unverified Allergy, Unknown, 08/04/14) Patient History Past Medical History: see triage record, old chart reviewed Past Surgical History: other Pertinent Family History: none Social History: Reports: alcohol use Immunizations: other Reviewed Nursing Documentation: PMH: Agreed, PSxH: Agreed Nursing Documentation-PMH Past Medical History: No History, Except For Hx Cardiac Problems: No - ETOH Hx Hypertension: No Hx Pacemaker: No Hx Asthma: No Hx COPD: No Hx Diabetes: No Hx Cancer: No Hx Gastrointestinal Problems: No Hx Dialysis: No Hx Neurological Problems: Yes - Paraplegic Hx Seizures: No Review of Systems Eye: Denies: eye pain, blurred vision ENT: Denies: ear pain, nose congestion, throat swelling Respiratory: Denies: cough, shortness of breath Cardiovascular: Denies: chest pain, palpitations Gastrointestinal: Denies: abdominal pain, diarrhea, nausea, vomiting Musculoskeletal: Reports: back pain, Denies: joint pain Skin: Denies: rash Neurological: Denies: headache, numbness Endocrine: Denies: increased thirst, increased urine Hematologic/Lymphatic: Denies: easy bruising All Other Systems: negative except mentioned in HPI Physical Exam Vital Signs Date Time Temp Pulse Resp B/P (MAP) Pulse Ox O2 Delivery O2 Flow Rate FiO2 07/25/17 22:31 97.9 99 16 132/89 98 Room Air vitals normal Sp02 EP Interpretation: reviewed, normal General Appearance: no apparent distress, other - Intoxicated Head: normocephalic, atraumatic Eyes: bilateral eye PERRL, bilateral eye EOMI ENT: hearing grossly normal, normal pharynx Neck: full range of motion, supple, no meningismus Respiratory: chest non-tender, lungs clear, normal breath sounds Cardiovascular #1: regular rate, rhythm, no murmur Gastrointestinal: normal bowel sounds, non tender, no mass, no organomegaly, no bruit, non-distended Musculoskeletal: back normal, normal range of motion Psychiatric: mood/affect normal Skin: warm/dry Medical Decision Making Diagnostic Impression: Primary Impression: Back pain Qualified Codes: M54.5 - Low back pain; G89.29 - Other chronic pain Additional Impression: Acute alcoholic intoxication Qualified Codes: F10.929 - Alcohol use, unspecified with intoxication, unspecified ER Course Patient presents with acute alcohol intoxication. He has chronic back pain secondary to degenerative disc disease. No trauma. No evidence of cauda equina syndrome, spinal or abscess or neoplastic process. We'll discharge home once clinically sober. Last Vital Signs Date Time Temp Pulse Resp B/P (MAP) Pulse Ox O2 Delivery O2 Flow Rate FiO2 07/25/17 22:31 97.9 99 16 132/89 98 Room Air Status: improved Disposition: HOME, SELF-CARE Condition: Stable Referrals: [facility],REFERRING (PCP) Additional Instructions: Followup with your Dr. in 7 days. Go to rehabilitation. Stop drinking alcohol. Return if worse. GRICELDA WELLINGTON M.D. Jul 26, 2017 00:11
[2017-07-26 02:51] VITALS: BP 135/90
== END 2017-07-26 02:54 | disposition home or self-care (01) ==
LOC: EDBD 22:29 → EMR 22:45
DX: M54.9 Dorsalgia, unspecified (principal); G89.29 Other chronic pain; F10.129 Alcohol abuse with intoxication, unspecified; G82.20 Paraplegia, unspecified
CPT/HCPCS: 99283

== ENCOUNTER 2017-09-05 12:37 | Emergency (ER) | payer MEDICAID ==
[~2017-09-05] VITALS: Ht 165.1 cm; Wt 59.0 kg
[2017-09-05 12:53] VITALS: BP 103/64
--- NOTE | 2017-09-05 13:04 | Emergency Room Report ---
History of Present Illness General Chief Complaint: General Complaint Source: Patient, Medical Record Present Illness HPI 66-year-old male presents to the emergency department stating that "he wants to be here"patient denies pain at this time. Denies trauma, fall, fevers or chills. Patient denies drinking today. He denies drug or alcohol use. Denies CP, Palpitations, LOC, AMS, dizziness, Changes in Vision, Sensation, paresthesias, or a sudden severe headache. Pt. HPI and ROS limited due to poor pt. cooperation and attention span. Allergies: Coded Allergies: NO KNOWN DRUG ALLERGIES (Unverified Allergy, Unknown, 08/04/14) Patient History Past Medical History: see triage record Past Surgical History: none Pertinent Family History: none Social History: Reports: alcohol use - habitual intoxication Reviewed Nursing Documentation: PMH: Agreed, PSxH: Agreed Nursing Documentation-PMH Past Medical History: No History, Except For Hx Cardiac Problems: No - ETOH Hx Hypertension: No Hx Pacemaker: No Hx Asthma: No Hx COPD: No Hx Diabetes: No Hx Cancer: No Hx Gastrointestinal Problems: No Hx Dialysis: No Hx Seizures: No Review of Systems All Other Systems: limited - Poor pt. cooperation Physical Exam Vital Signs Date Time Temp Pulse Resp B/P (MAP) Pulse Ox O2 Delivery O2 Flow Rate FiO2 09/05/17 12:37 97.6 80 16 103/64 100 Room Air 97.5 Sp02 EP Interpretation: reviewed, normal General Appearance: no apparent distress, alert, GCS 15, non-toxic Head: normocephalic, atraumatic Eyes: bilateral eye normal inspection, bilateral eye PERRL ENT: hearing grossly normal, normal voice Neck: full range of motion, no bony tend Respiratory: chest non-tender, lungs clear, normal breath sounds, speaking full sentences - slurred speech Cardiovascular #1: regular rate, rhythm, no edema, normal capillary refill Gastrointestinal: non tender, soft Musculoskeletal: back normal, normal range of motion, non-tender Neurologic: alert - Oriented x 1, responsive, motor strength/tone normal, sensory intact, speech normal - slurred speech, able to answer questions with sentences. , grossly normal Psychiatric: judgement/insight normal Skin: normal color, no rash, warm/dry Medical Decision Making PA Attestation Dr. Augustin is my supervising Physician whom patient management has been discussed with. Diagnostic Impression: Primary Impression: Acute alcoholic intoxication Qualified Codes: F10.929 - Alcohol use, unspecified with intoxication, unspecified ER Course 66-year-old male presents to the emergency department stating that "he wants to be here"patient denies pain at this time. Denies trauma, fall, fevers or chills. Patient denies drinking today. He denies drug or alcohol use. Denies CP, Palpitations, LOC, AMS, dizziness, Changes in Vision, Sensation, paresthesias, or a sudden severe headache. Pt. HPI and ROS limited due to poor pt. cooperation and attention span. pt. is NAD, pt. is alert, no obvious signs of trauma, able to ambulate to follow commands, and answer questions. Pt. is A & O x 1, denies pain. reports that "he wants to be here." Pt. is well known to the ED for multiple visits for acute ETOH intoxication. Ddx considered but are not limited to ETOH, Trauma, Syncope, dementia, OD Vital signs: are WNL, pt. is afebrile H&PE are most consistent with ETOH abuse. ORDERS: -Serum ETOH: 319 consistent with ETOH intoxication. ED INTERVENTIONS: -1 Liter NS Bolus - Observance while he detoxifies. -Pt. was allowed to sleep/rest. PT. became awake and alert x 3 - Pt. requests to go home. he is tolerating sandwiches and oral hydration. pt. is ambulatory with his walker. -Pt. is now clinically sober. DISCHARGE: At this time pt. is stable for d/c to home. Will provide printed patient care instructions, and any necessary prescriptions. Care plan and follow up instructions have been discussed with the patient prior to discharge. Labs Test 09/05/17 13:00 Serum Alcohol 319 mg/dL Last Vital Signs Date Time Temp Pulse Resp B/P (MAP) Pulse Ox O2 Delivery O2 Flow Rate FiO2 09/05/17 12:53 97.5 80 16 103/64 100 Room Air 97.5 Status: improved Disposition: HOME, SELF-CARE Condition: Stable Patient Instructions: Alcohol Intoxication, [id number] Additional Instructions: Take any previously prescribed medications as directed. * DISCONTINUE EXCESSIVE ALCOHOL INTAKE * Follow up with a Primary Care Provider in 3-5 days, even if your symptoms have resolved. --Please review list of primary care clinics, if you do not already have a primary care provider Return sooner to ED if new symptoms occur, or current symptoms become worse. Do not drive, or operate heavy machinery while under the influence of Alcohol. - Please note that this Emergency Department Report was dictated using Kriyariedger runner technology software, occasionally this can lead to erroneous entry secondary to interpretation by the dictation equipment. Regi Gonzales Sep 05, 2017 13:04
[2017-09-05 18:14] VITALS: BP 109/64
[2017-09-05 20:05] VITALS: BP 130/72
== END 2017-09-05 20:05 | disposition home or self-care (01) ==
LOC: EDBD 12:37 → EMR 13:38
DX: F10.129 Alcohol abuse with intoxication, unspecified (principal)
CPT/HCPCS: 36415; 80329; 96374; 96375; 99284

== ENCOUNTER 2017-09-09 16:56 | Emergency (ER) | payer MEDICAID ==
[~2017-09-09] VITALS: Ht 167.6 cm; Wt 72.6 kg
[2017-09-09 17:09] VITALS: BP 124/71
--- NOTE | 2017-09-09 19:00 | Emergency Room Report ---
History of Present Illness General Chief Complaint: Multiple Trauma/Fall Source: EMS Present Illness HPI Pt. presents to the ED intoxicated with alcohol, pt. is NAD, pt. is alert, no obvious signs of trauma. answering questions. not clinically sober. EMS witnessed pt. fall outside on the sidewalk. They do not report witnessed head trauma. Pt. states he feels fine. he reports " he was trying to be good by not drinking at home. " pt. reports drinking today. pt. states he is having "problems with his ." Allergies: Coded Allergies: NO KNOWN DRUG ALLERGIES (Unverified Allergy, Unknown, 08/04/14) Patient History Past Medical History: see triage record, other - ETOH Past Surgical History: none Social History: Reports: alcohol use Reviewed Nursing Documentation: PMH: Agreed, PSxH: Agreed Nursing Documentation-PMH Past Medical History: No Stated History Hx Cardiac Problems: No - ETOH Hx Hypertension: No Hx Pacemaker: No Hx Asthma: No Hx COPD: No Hx Diabetes: No Hx Cancer: No Hx Gastrointestinal Problems: No Hx Dialysis: No Hx Seizures: No Review of Systems All Other Systems: limited - poor pt. cooperation. Physical Exam Vital Signs Date Time Temp Pulse Resp B/P (MAP) Pulse Ox O2 Delivery O2 Flow Rate FiO2 09/09/17 16:53 98.0 78 18 124/71 98 Room Air 98.1 Sp02 EP Interpretation: reviewed, normal General Appearance: no apparent distress, alert, GCS 15, non-toxic Head: normocephalic, atraumatic Eyes: bilateral eye normal inspection, bilateral eye PERRL, bilateral eye other - right eye has purulent d/c and some erythma. ENT: hearing grossly normal, normal voice Neck: full range of motion Respiratory: lungs clear, normal breath sounds, speaking full sentences Cardiovascular #1: regular rate, rhythm, normal capillary refill Gastrointestinal: normal bowel sounds, non tender, soft Musculoskeletal: back normal, gait/station normal, normal range of motion, non- tender Neurologic: alert, oriented x3, responsive, motor strength/tone normal, sensory intact, grossly normal Psychiatric: judgement/insight normal Skin: normal color, no rash, warm/dry, well hydrated, other - no open wounds, hematomas, abrasions or lacerations. Medical Decision Making PA Attestation Dr. zee is my supervising Physician whom patient management has been discussed with. Diagnostic Impression: Primary Impression: Acute alcoholic intoxication Qualified Codes: F10.929 - Alcohol use, unspecified with intoxication, unspecified Additional Impression: Bacterial conjunctivitis of right eye ER Course Pt. presents to the ED intoxicated with alcohol, pt. is NAD, pt. is alert, no obvious signs of trauma. answering questions. not clinically sober. EMS witnessed pt. fall outside on the sidewalk. They do not report witnessed head trauma. Pt. states he feels fine. he reports " he was trying to be good by not drinking at home. " pt. reports drinking today. pt. states he is having "problems with his ." Pt. denies eye pain. Pt. well known to the ED , for frequent ETOH intoxication. no PE evidence to suggest head trauma. no neurological deficits or signs to suggest obvious brain injury. Ddx considered but are not limited to ETOH, Trauma, Syncope, dementia, OD Vital signs: are WNL, pt. is afebrile H&PE are most consistent with ETOH abuse. Pt. has evidence of bacterial conjunctivitis of the right eye. ORDERS: none required at this time ED INTERVENTIONS: -Observance while he detoxifies. -Pt. was allowed to sleep/rest. - PT. remained awake and alert x 3 - Pt is ambulatory with his walker. -Pt. states he is ready to go home. -Pt. asking for money to ride the bus. -Pt. is Clinically Sober. DISCHARGE: At this time pt. is stable for d/c to home. Will provide printed patient care instructions, and any necessary prescriptions. Care plan and follow up instructions have been discussed with the patient prior to discharge. Last Vital Signs Date Time Temp Pulse Resp B/P (MAP) Pulse Ox O2 Delivery O2 Flow Rate FiO2 09/09/17 17:09 98.1 18 124/71 98 Room Air 98.1 09/09/17 16:53 78 Disposition: HOME, SELF-CARE Condition: Stable Scripts Ofloxacin (OCUFLOX) 5 Ml Drops 2 DROP OP BID for 5 Days, #5 ML Prov: Regi Gonzales 09/09/17 Referrals: [facility],REFERRING (PCP) Patient Instructions: Alcohol Abuse and Nutrition, Alcohol Intoxication, Easy- to-Read Additional Instructions: STOP EXCESSIVE ALCOHOL USE. Follow up with a Primary Care Provider in 3-5 days, even if your symptoms have resolved. --Please review list of primary care clinics, if you do not already have a primary care provider Return sooner to ED if new symptoms occur, or current symptoms become worse. - Please note that this Emergency Department Report was dictated using [employer]ikdeckhand engineer technology software, occasionally this can lead to erroneous entry secondary to interpretation by the dictation equipment. Regi Gonzales Sep 09, 2017 19:00
[2017-09-09] MEDS ORDERED: OCUFLOX5 ML OP (20:51)
[2017-09-09 20:58] VITALS: BP 124/71
== END 2017-09-09 20:59 | disposition home or self-care (01) ==
LOC: EDBD 16:56 → EMR 17:43
DX: F10.129 Alcohol abuse with intoxication, unspecified (principal); H10.89 Other conjunctivitis; B96.89 Other specified bacterial agents as the cause of diseases classified elsewhere
CPT/HCPCS: 99283